=== PATIENT | male | born 1960 | race African-American/Black ===

== ENCOUNTER 2017-01-06 06:18 | Emergency (ER) | payer BC ==
[~2017-01-06] VITALS: Ht 165.1 cm; Wt 63.6 kg
[~2017-01-06 06:18] MED LIST: BENTYL20 MG PO; BLOOD PRESSURE MED; CIPROFLOXACN500 MG PO; CLONIDINE0.2 MG OR; FLAGYL500 MG PO; FLEXERIL PO; LISINOP/HCTZ1 TA2 PO; NAPROSYN500 MG OR; POT CHLORIDE10 ME5 OR; TAMSULOSIN0.4 MG PO; ZOFRAN4 MG/TAB PO
[2017-01-06] MEDS ORDERED: ATORVASTATIN CA40 MG PO (06:42)
[2017-01-06] MEDS ORDERED: LISINOPRIL20 M1 PO (06:42)
[2017-01-06] MEDS ORDERED: ADULT ASPIRIN E81 MG PO (06:43)
[2017-01-06 06:44] LABS: HEMOGLOBIN 13.9 g/dl (14.0-18.0); IMMATURE GRANULOCYTES 0.8 % (0.0-1.0); MEAN CELL VOLUME 91.9 fL CALC (80.0-100.0); MEAN CORPUSCULAR HGB 30.4 pG CALC (26.0-32.0); MEAN CORPUSCULAR HGB CONC 33.1 g/L CALC (32.0-36.0); NEUT# 5.57 thou/uL (1.82-7.42); RED BLOOD COUNT 4.57 mill/uL (4.70-6.10); RED CELL DISTRI WIDTH 14.2 % (11.5-15.5)
[2017-01-06 06:54] LABS: ALBUMIN 4.5 g/dL (3.2-5.0); ALKALINE PHOSPHATASE 96 u/l (38-126); ANION GAP 13 (6-22 (CALC)); BILIRUBIN, TOTAL 0.3 mg/dL (0.0-1.4); BUN 12 mg/dL (9-20); BUN/CREATININE RATIO 12 (12-20 (CALC)); CALCIUM 9.4 mg/dL (8.4-10.2); CARBON DIOXIDE 25 mmol/l (22-30); CHLORIDE 108 mmol/l (95-108); GFR > 60 ML/MIN (>=60 (CALC)); GFR FOR AFR.AMER. > 60 ML/MIN (>=60 (CALC)); GLUCOSE 105 mg/dL (75-110); POTASSIUM 4.1 mmol/l (3.5-5.1); SGOT/AST 19 u/l (17-59); SGPT/ALT 28 u/l (21-72); SODIUM 142 mmol/l (137-146); TOTAL PROTEIN 7.9 g/dL (6.3-8.2)
[2017-01-06 07:04] LABS: INTERNATIONAL NORMALIZED RATIO 0.9 RATIO (0.7-1.3); PROTHROMBIN TIME 9.4 SECONDS (9.0-12.5)
[2017-01-06 07:06] LABS: MYOGLOBIN 34 ng/mL (0 - 121)
[2017-01-06 08:34] LABS: URINE BILIRUBIN - DIPSTICK NEGATIVE (NEGATIVE); URINE BLOOD DIPSTICK NEGATIVE (NEGATIVE); URINE CLARITY CLEAR; URINE COLOR YELLOW; URINE GLUCOSE - DIPSTICK NEGATIVE (NEGATIVE); URINE KETONE NEGATIVE (NEGATIVE); URINE LEUK ESTERASE NEGATIVE (NEGATIVE); URINE NITRITE - DIPSTICK NEGATIVE (Negative); URINE PH 5.5 (4.5-8.0); URINE PROTEIN - DIPSTICK NEGATIVE (NEG-TRACE); URINE UROBILINOGEN - DIPSTICK 0.2 E.U./dL (0.2)
[2017-01-06 08:55] VITALS: BP 160/85
== END 2017-01-06 08:55 | disposition short-term general hospital (02) | DRG 93 ==
LOC: ED 06:18
PROVIDERS: Emergency Medicine
DX: R20.0 Anesthesia of skin (principal); I10 Essential (primary) hypertension; R53.1 Weakness; R47.81 Slurred speech; F17.210 Nicotine dependence, cigarettes, uncomplicated

== ENCOUNTER 2018-04-29 08:25 | Day surgery (SDC) | payer BC ==
[~2018-04-29] VITALS: Ht 167.6 cm; Wt 76.2 kg
[~2018-04-29 08:25] MED LIST changes: +ADULT ASPIRIN E81 MG PO; +AMLODIPINE5 MG PO; +ATORVASTATIN CA40 MG PO; +CLOPIDOGREL75 MG PO; +COQ10200 MG PO; +LISINOPRIL20 M1 PO
[2018-04-29 10:14] VITALS: BP 127/86
== END 2018-04-29 10:30 | disposition home or self-care (01) | DRG 951 ==
LOC: ENDO 08:25
PROVIDERS: ATTEND Surgery
PROC: 0DJD8ZZ Inspection of Lower Intestinal Tract, Via Natural or Artificial Opening Endoscopic (ICD-10-PCS; principal; 2018-04-29)
DX: Z12.11 Encounter for screening for malignant neoplasm of colon (principal); I10 Essential (primary) hypertension; E78.5 Hyperlipidemia, unspecified